=== PATIENT | male | born 1955 | race African-American/Black ===

== ENCOUNTER 2022-12-16 10:02 | Inpatient (IN) | payer MEDICARE, OTHER ==
[~2022-12-16] VITALS: Ht 177.8 cm; Wt 104.8 kg
[~2022-12-16 10:02] MED LIST: ACET1TAB14 PO; CELE100C PO; FURO80TA3 PO; HYDR-4134 PO; IBUP-2030 PO; NIFE20CA PO; TRAM50TA3 PO
[2022-12-16 12:37] LABS: HEMATOCRIT. 38.5 % (42.0-52.0); HEMOGLOBIN. 12.7 g/dL (14.0-18.0); MEAN CORPUSCULAR HEMOGLOBIN 31.3 pg (28.0-32.0); MEAN CORPUSCULAR VOLUME 94.9 fL (80.0-94.0); MEAN PLATELET VOLUME 7.7 fl (7.4-10.4); PLATELET 215 x1000/uL (130-400); RED BLOOD CELL COUNT 4.06 mill/uL (4.7-6.1); RED CELL DISTRIBUTION WIDTH 13.8 % (11.6-14.6)
[2022-12-16 12:49] LABS: CHLORIDE 102 mEq/L (98-107)
[2022-12-16 12:55] LABS: PLATELET ESTIMATE NORMAL
[2022-12-16] MEDS ORDERED: ONDANSETRON HCL 4MG/2ML INJ IV PRN (14:45)
[2022-12-16] MEDS ORDERED: MAGNESIUM/ALUMINUM HYDROXIDE/SIMETHICONE 30ML UDC PO PRN (14:45)
[2022-12-16] MEDS ORDERED: ENOXAPARIN 40MG/0.4ML SYR SUBCUT SCH (16:00)
[2022-12-17] VITALS (7 sets, daily range): BP systolic 112–164; BP diastolic 70–86
[2022-12-17] MEDS: HYDRALAZINE HCL 50MG TABLET PO SCH ×4 (08:45→23:20)
[2022-12-17] MEDS ORDERED: FUROSEMIDE 40MG/4 ML UDC PO SCH (09:00)
[2022-12-17] MEDS: NIFEDIPINE XL 30MG TAB PO SCH ×2 (09:02→20:33)
[2022-12-17] MEDS: POTASSIUM CHLORIDE 20MEQ TABLET SR PO SCH (09:04)
[2022-12-17] MEDS: FUROSEMIDE 40MG TABLET PO SCH ×2 (09:04→16:41)
[2022-12-17] MEDS ORDERED: CARV25TA47 PO (09:27)
[2022-12-17] MEDS ORDERED: ALLO300T2 PO (09:27)
[2022-12-17] MEDS ORDERED: ISOS20TA57 PO (09:27)
[2022-12-17] MEDS ORDERED: PRAV40TA58 PO (09:27)
[2022-12-17] MEDS ORDERED: NALOXONE HCL 0.4MG/ML VIAL IV PRN (10:00)
[2022-12-17] MEDS: HYDROCODONE/ACETAMINOPHEN 10/325MG TABLET PO PRN ×2 (13:03→20:43)
[2022-12-17 15:03] LABS: BASOPHILS % 0.5 % (0.0-2.0); EOSINOPHILS % 1.3 % (0.0-5.0); HEMATOCRIT. 39.6 % (42.0-52.0); LYMPHOCYTES % 10.5 % (20.0-50.0); MEAN CORPUSCULAR HEMOGLOBIN 31.2 pg (28.0-32.0); MEAN CORPUSCULAR VOLUME 94.8 fL (80.0-94.0); MEAN PLATELET VOLUME 7.9 fl (7.4-10.4); MONOCYTES % 11.5 % (2.0-8.0); NEUTROPHILS % 76.2 % (40.0-76.0); PLATELET 235 x1000/uL (130-400); RED BLOOD CELL COUNT 4.18 mill/uL (4.7-6.1); RED CELL DISTRIBUTION WIDTH 13.8 % (11.6-14.6)
[2022-12-17 15:22] LABS: CHLORIDE 98 mEq/L (98-107)
[2022-12-17] MEDS: ENOXAPARIN 30MG/0.3ML SYR SUBCUT SCH (20:43)
[2022-12-18] VITALS: BP 119/70
[2022-12-18 04:00] VITALS: BP_SYST 106; BP_SYST 110; BP_SYST 128; BP_DIAS 69; BP_DIAS 71; BP_DIAS 72
[2022-12-18] MEDS: HYDROCODONE/ACETAMINOPHEN 10/325MG TABLET PO PRN ×2 (04:42→10:31)
[2022-12-18] MEDS: HYDRALAZINE HCL 50MG TABLET PO SCH (06:10)
[2022-12-18] MEDS: FUROSEMIDE 40MG TABLET PO SCH (07:15)
[2022-12-18 08:00] VITALS: BP 122/75
[2022-12-18] MEDS ORDERED: ALLOPURINOL 300 MG TABLET PO SCH (09:00)
[2022-12-18] MEDS: ENOXAPARIN 30MG/0.3ML SYR SUBCUT SCH (09:56)
[2022-12-18] MEDS: NIFEDIPINE XL 30MG TAB PO SCH (09:57)
[2022-12-18] MEDS: POTASSIUM CHLORIDE 20MEQ TABLET SR PO SCH ×2 (09:57→10:00)
[2022-12-18 10:42] VITALS: BP 122/75
== END 2022-12-18 12:30 | disposition home or self-care (01) | DRG 291 ==
LOC: ER 10:02 → EDBEDREQ 12:51 → 7EST 14:26 → CANRESERV 23:32 → ENRESERV 23:32 → EDBEDREQTM 23:37 → EDBEDREQ 23:37
PROVIDERS: ADMIT Hospitalist; ATTEND Hospitalist
DX: I11.0 Hypertensive heart disease with heart failure (principal); I50.23 Acute on chronic systolic (congestive) heart failure; J44.9 Chronic obstructive pulmonary disease, unspecified; F10.10 Alcohol abuse, uncomplicated; Y90.9 Presence of alcohol in blood, level not specified; F17.200 Nicotine dependence, unspecified, uncomplicated; I48.91 Unspecified atrial fibrillation; M10.9 Gout, unspecified; Z79.01 Long term (current) use of anticoagulants; Z88.0 Allergy status to penicillin; Z79.899 Other long term (current) drug therapy; Z79.1 Long term (current) use of non-steroidal anti-inflammatories (NSAID); Z82.49 Family history of ischemic heart disease and other diseases of the circulatory system
CPT/HCPCS: 36415; 71045; 80048; 80053; 82553; 83880; 84484; 85025; 93005; 93306; 93970; 99285; J1650